=== PATIENT | female | born 1985 | race Two or more races ===

== ENCOUNTER 2023-07-09 20:39 | Emergency (ER) | payer OTHER ==
[~2023-07-09] VITALS: Ht 165.1 cm; Wt 65.0 kg
[2023-07-09 21:06] VITALS: BP 125/82; PULSE 125; RESP 16; TEMP 99.1; O2SAT 97
[2023-07-09 23:12] LABS: Basophils # (auto) 0.1 10 ^3/uL (0-0.2); Basophils % (auto) 0.6 % (0.0-2.0); Eosinophils # (auto) 0.1 10 ^3/uL (0-0.8); Eosinophils % (auto) 0.5 % (0.0-7.0); Hemoglobin 12.4 g/dL (12.2-16.2); Lymphocytes # (auto) 1.5 10 ^3/uL (0.4-5.4); Lymphocytes % (auto) 10.6 % (10.0-50.0); Mean Corpuscular Hgb Conc. 33.5 g/dL (32.0-36.0); Mean Corpuscular Volume 92.5 fL (80.0-100.0); Monocytes # (auto) 1.2 10 ^3/uL (0-1.3); Monocytes % (auto) 8.9 % (0.0-12.0); Neutrophils # (auto) 10.9 10 ^3/uL (1.6-8.6); Neutrophils % (auto) 79.4 % (37.0-80.0); Nucleated Red Blood Cells % 0.1 %; Red Cell Distribution Width 13.3 % (11.8-14.3); White Blood Cell 13.7 10^3/uL (4.4-10.8)
[2023-07-09 23:21] LABS: COVID19 ANTIGEN SOFIA FIA NEGATIVE (NEGATIVE); Rapid Influenza A Negative (Negative); Rapid Influenza B Negative (Negative)
[2023-07-10 01:48] LABS: Urine Bacteria FEW /hpf (None Seen); Urine Blood Negative /uL (Negative); Urine Clarity Clear (Clear); Urine Protein, UAD Negative (Negative); Urine Specific Gravity 1.014 (1.001-1.035); Urine Urobilinogen Normal (Negative); Urine WBC 4 /hpf (0 - 5)
[2023-07-10 01:49] LABS: Urine Color Straw (Yellow)
[2023-07-10] MEDS ORDERED: NITR-87 PO (01:55)
== END 2023-07-10 02:12 | disposition home or self-care (01) ==
LOC: ER 20:39
DX: O23.42 Unspecified infection of urinary tract in pregnancy, second trimester (principal); R10.2 Pelvic and perineal pain; N39.0 Urinary tract infection, site not specified; Z3A.15 15 weeks gestation of pregnancy; Z20.822 Contact with and (suspected) exposure to COVID-19
CPT/HCPCS: 36415; 76805; 81001; 84702; 85025; 87426; 87804

== ENCOUNTER 2025-03-05 22:25 | Emergency (ER) | payer MEDICAID, OTHER ==
[~2025-03-05] VITALS: Ht 165.1 cm; Wt 55.4 kg
[~2025-03-05 22:25] MED LIST: NITR-87 PO
[2025-03-05] MEDS ORDERED: DIPH25CA66 PO (23:31)
[2025-03-05] MEDS ORDERED: PRED20TA2 PO (23:31)
[2025-03-05] MEDS ORDERED: ACET500T58 PO (23:31)
--- NOTE | 2025-03-05 23:31 | ED.PDOC ---
History of Present Illness(SKN HPI Comments 39-year-old female presents to ER with complaints of spider bite to right forearm x1 day. Patient reports that she was bit by an unknown type of spider on her right forearm at 9:30 p.m. prior to arrival to ER and has since been experiencing redness and 5/10 pain localized to site of insect bite. Denies use of medications for current symptoms and presents to ER ambulatory on arrival, with steady gait, in no distress with vitals stable. Denies fever, body aches, chills, nausea/vomiting, headache, dizziness or any further symptoms/complaints Chief Complaint: Insect Bite Time Seen by MD: 22:38 Primary Care Provider: UNKNOWN History of Present Illness: Nurses Notes, Medications, Allergies Allergies: Coded Allergies: NO KNOWN ALLERGIES (Unverified , 07/09/23) Home Meds Active Scripts Prednisone (Prednisone) 20 Mg Tab, 20 MG PO BID for 5 Days, #10 TAB 0 Refills Prov:SHANICE DOHERTY 03/05/25 Diphenhydramine Hcl (Benadryl Allergy) 25 Mg Cap, 2 CAP PO Q6HPRN, #30 CAP 0 Refills Prov:SHANICE DOHERTY 03/05/25 Acetaminophen (Acetaminophen) 500 Mg Tab, 500 MG PO Q4HPRN, #30 TAB 0 Refills Prov:SHANICE DOHERTY 03/05/25 Nitrofurantoin Monohydrate Mac (Macrobid) 100 Mg Cap, 1 TAB PO BID for 10 Days, #20 CAP Prov:ANTONI GRAHAM [employer]TER 07/10/23 Information Source: Patient Mode of Arrival: Ambulatory Tetanus: UTD Past Medical History PAST MEDICAL HISTORY: Denies Surgical History: Denies all surgeries MANAGER CONVENTION History: No Pertinent MANAGER CONVENTION History Family History Family History: Unknown Social History Smoker: Non-Smoker Alcohol: Denies ETOH Use Drugs: Denies Drug Use Lives In: Home Constitutional: denies: chills, diaphoresis, fatigue, fever, malaise, sweats, weakness, others EENTM: denies: blurred vision, double vision, ear bleeding, ear discharge, ear drainage, ear pain, ear ringing, eye pain, eye redness, hearing loss, mouth pain, mouth swelling, nasal discharge, nose bleeding, nose congestion, nose pain, photophobia, tearing, throat pain, throat swelling, voice changes, others Respiratory: denies: cough, hemoptysis, orthopnea, SOB at rest, shortness of breath, SOB with excertion, stridor, wheezing, others Cardiovascular: denies: chest pain, dizzy spells, diaphoresis, Dyspnea on exertion, edema, irregular heart beat, left arm pain, lightheadedness, palpitations, PND, syncope, others Gastrointestinal: denies: abdomen distended, abdominal pain, blood streaked bowels, constipated, diarrhea, dysphagia, difficulty swallowing, hematemesis, melena, nausea, poor appetite, poor fluid intake, rectal bleeding, rectal pain, vomiting, others Genitourinary: denies: abnormal vagina bleeding, burning, dyspareunia, dysuria, flank pain, frequency, hematuria, incontinence, pain, , vagina discharge, urgency, others Neurological: denies: dizziness, fainting, headache, left sided numbness, left sided weakness, numbness, paresthesia, pre-existing deficit, right sided numbness, right sided weakness, seizure, speech problems, tingling, tremors, weakness, others Musculoskeletal: denies: back pain, gout, joint pain, joint swelling, muscle pain, muscle stiffness, neck pain, others Integumetry: reports: others (As stated in HPI) Allergic/Immunocompromised: denies: Difficulty Healing, Frequent Infections, Hives, Itching, others Hematologic/Lymphatic: denies: anemia, blood clots, easy bleeding, easy bruising, swollen glands, others Endocrine: denies: excessive hunger, excessive sweating, excessive thirst, excessive urination, flushing, intolerance to cold, intolerance to heat, u nexplained weight gain, unexplained weight loss, others Psychiatric: denies: anxiety, bipolar disorder, depression, hopeless, panic disorder, schizophrenia, sleepless, suicidal, others Physical Exam General Appearance: No Apparent Distress, Normal HEENT: Normal ENT Inspection, PERRL/EOMI, Pharynx Normal, TMs Normal Neck: Full Range of Motion, Non-Tender, Normal Respiratory: Chest Non-Tender, Lungs Clear, No Accessory Muscle Use, No Respiratory Distress, Normal Breath Sounds Cardiovascular: No Murmur, No Gallop, Regular Rate/Rhythm Breast Exam: Deferred Gastrointestinal: NOT DONE Genitalia: Deferred Pelvic: Deferred Rectal: Deferred Extremities: Normal capillary refill, Normal range of motion Neurologic: Alert, bladder cleaner II-XII nml as Tested, No Motor Deficits, Normal Affect, Normal Mood, No Sensory Deficits Cerebellar Function: Normal Reflexes: Normal Skin: Dry, Warm, Other (Small puncture de [place] santos noted to right lower forearm with mild localized, non-tender erythema. No induration, fluctuance, drainage, foreign body or further symptoms noted. Pulses intact) Peripheral Pulses: 2+ Radial (R), 2+ Radial (L), 2+ Brachial (R), 2+ Brachial (L) Lymphatic: No Adenopathy Was a procedure done? Was a procedure done?: No Sedation Sedation?: No Differential Diagnosis (INTG) Differential Diagnosis: Abrasion Differential Diagnosis: Abscess Differential Diagnosis: Retained Foreign Body X-Ray, Labs, Meds, VS Vital Signs Date Time Temp Pulse Resp B/P (MAP) Pulse Ox O2 Delivery O2 Flow Rate FiO2 03/05/25 22:28 98.2 86 20 121/78 99 98.2 Current Medications Medications (Trade) Dose Ordered Sig/Daisy Route Start Time Stop Time Status Last Admin Methylprednisolone Sodium Succinate (Solu Medrol) 125 mg ONCE ONCE IM 03/05/25 23:30 03/05/25 23:31 DC 03/06/25 00:29 Diphenhydramine HCl (Benadryl Injection) 25 mg ONCE ONCE IM 03/05/25 23:30 03/05/25 23:31 DC 03/06/25 00:31 Acetaminophen (Tylenol Tablet) 650 mg ONCE ONCE PO 03/05/25 23:30 03/05/25 23:31 DC 03/06/25 00:30 Solu-Medrol 125 mg IM ordered Benadryl 25 mg IM ordered Tylenol 650 mg p.o. ordered Patient had improvement in symptoms, vitals stable and in no distress prior to discharge Advised to drink plenty of fluids Advised to follow up with PCP in 1-2 days Patient verbalized understanding and agreeable with current plan of care Advised to return to ER immediately if symptoms worsen Time of 1ST Reevaluation: 23:14 Reevaluation 1ST: N/A Patient Education/Counseling: Diagnosis, Treatment, Prognosis, Need For Follow Up Family Education/Counseling: No Family Present SEPSIS Sepsis Screen Date sepsis recognized/suspect: Mar 05, 2025 Time Sepsis recognized/suspect: 2230 Recent Procedure: No On Antibiotic Therapy: No Respiratory Rate >20: No Heart Rate >90: No Temp<36 C (96.8 F) or >38.3 C: No SBP <90 or MAP <65 mmHG: No New Acute Mental Status Change: No Is the patient on CPAP, BIPAP,: No Vital Signs Date Time Temp Pulse Resp B/P (MAP) Pulse Ox O2 Delivery O2 Flow Rate FiO2 03/05/25 22:28 98.2 86 20 121/78 99 98.2 Medications Medications Dose Ordered Sig/Daisy Route Start Time Stop Time Status Last Admin Dose Admin Acetaminophen 650 mg ONCE ONCE PO 03/05/25 23:30 03/05/25 23:31 DC 03/06/25 00:30 Diphenhydramine HCl 25 mg ONCE ONCE IM 03/05/25 23:30 03/05/25 23:31 DC 03/06/25 00:31 Methylprednisolone Sodium Succinate 125 mg ONCE ONCE IM 03/05/25 23:30 03/05/25 23:31 DC 03/06/25 00:29 Departure 1 Departure Time of Disposition: 23:28 Impression: Primary Impression: Spider bite Qualified Codes: T63.301A - Toxic effect of unspecified spider venom, accidental (unintentional), initial encounter Disposition: HOME / SELF CARE / HOMELESS Condition: Stable e-Prescriptions Prednisone (Prednisone) 20 Mg Tab 20 MG PO BID for 5 Days, #10 TAB 0 Refills Prov: SHANICE DOHERTY 03/05/25 Diphenhydramine Hcl (Benadryl Allergy) 25 Mg Cap 2 CAP PO Q6HPRN, #30 CAP 0 Refills Prov: SHANICE DOHERTY 03/05/25 Acetaminophen (Acetaminophen) 500 Mg Tab 500 MG PO Q4HPRN, #30 TAB 0 Refills Prov: SHANICE DOHERTY 03/05/25 Discharged With: Significant Other Critical Care Note Critical Care Time?: No Stability Stability form required: No Heart Score Heart Score: Heart Score Response (Comments) Value History N/A 0 EKG N/A 0 Age N/A 0 Risk Factors N/A 0 Troponin N/A 0 Total 0 SHANICE DOHERTY Mar 05, 2025 23:31
[2025-03-06 00:15] VITALS: BP 121/78; TEMP 98.2
[2025-03-06 00:26] VITALS: PULSE 77; RESP 20; O2SAT 99
[2025-03-06] MEDS: methylPREDNISolone SOD SUCC 125 MG/2 ML VL IM ONE (00:29)
[2025-03-06] MEDS: ACETAMINOPHEN 325 MG TAB PO ONE (00:30)
[2025-03-06] MEDS: diphenhdrAMINE HCL 50 MG/1 ML VL IM ONE (00:31)
== END 2025-03-06 00:26 | disposition home or self-care (01) ==
LOC: ER 22:25
DX: S50.861A Insect bite (nonvenomous) of right forearm, initial encounter (principal); W57.XXXA Bitten or stung by nonvenomous insect and other nonvenomous arthropods, initial encounter; Y93.89 Activity, other specified; Y92.89 Other specified places as the place of occurrence of the external cause; Y99.8 Other external cause status
CPT/HCPCS: 96372; 99284; J1200; J2919